=== PATIENT | female | born 1940 | race Hispanic/Latino ===

== ENCOUNTER 2017-07-30 10:12 | Inpatient (IN) | payer MEDICARE ==
[2017-07-30 10:50] LABS: Hematocrit 40.4 % (30.3-42.9); Hemoglobin 13.6 gm/dl (10.1-14.3); Mean Corpuscular HGB Conc 34 % (30-34); Mean Corpuscular Hemoglobin 33 pg (28-32); Mean Corpuscular Volume 97 fl (79-97); Platelet Count 375 K/mm3 (140-440); Red Blood Count 4.16 M/mm3 (3.65-5.03); Red Cell Distribution Width 15.3 % (13.2-15.2)
[2017-07-30 11:05] LABS: BUN/Creatinine Ratio 23; Blood Urea Nitrogen 9 mg/dL (7-17); Calcium 8.8 mg/dL (8.4-10.2); Hemolysis Index 9
--- NOTE | 2017-07-30 11:46 | Cat Scan Report ---
CT HEAD WITHOUT CONTRAST: HISTORY: Syncope. TECHNIQUE: Sequential CT images without contrast. FINDINGS: Images obtained show bilateral prominence of the sulci and ventricles. There are no abnormal intra- or extra-axial blood or fluid collections. There are no focal masses or evidence of mass effect. The davidson white matter differentiation appears within normal limits. Regions of periventricular decreased attenuation are consistent with microangiopathic ischemic disease. The posterior fossa structures including the fourth ventricle, cerebellum, and brainstem appear normal. IMPRESSION: Evidence of atrophy and microangiopathic ischemic disease. No acute intracranial process noted.
--- NOTE | 2017-07-30 11:47 | XRay Report ---
LEFT SHOULDER, 3 VIEWS HISTORY: Left shoulder pain. FINDINGS: Mild osteopenia. A comminuted and mildly displaced left humeral neck fracture is identified. No definite extension to the glenohumeral joint. The left clavicle and scapula are intact. Soft tissue swelling. IMPRESSION: Left humeral neck fracture.
[2017-07-30] MEDS ORDERED: ZOFRAN IV ONE (12:47)
[2017-07-30] MEDS ORDERED: SUBLIMAZE IV ONE (12:47)
[2017-07-30] MEDS ORDERED: NACL 0.9% 1000 ML 1,000 ML IV ONE (13:36)
[2017-07-30] MEDS ORDERED: MORPHINE IM ONE (13:55)
[2017-07-30] MEDS ORDERED: MORPHINE ONE (13:56)
--- NOTE | 2017-07-30 14:08 | Emergency Department Report ---
HPI - General Chief Complaint: Fall Time Seen by Provider: 07/30/17 12:27 - HPI HPI: The patient is a 77-year-old female who presents for evaluation of left arm pain. The patient states that she fell to her left side early this morning approximately 2-3 hours prior to my evaluation, and sustaining injury to her left arm. She complains of constant pain since her fall, 10/10 in severity, throbbing in quality, exacerbated with attempted movement of the left arm at the shoulder joint. She states that she recalls falling but does not recall if she was lightheaded or dizzy prior to falling. She denies headache, neck pain, chest pain, dyspnea, abdominal pain, back pain, cough, hemoptysis, paresthesias , motor deficit and the other arms or legs. ED Past Medical Hx - Past Medical History Hx COPD: Yes - Social History Smoking Status: Current Every Day Smoker Substance Use Type: Alcohol - Medications Home Medications: Home Medications Medication Instructions Recorded Confirmed Last Taken Type Lactose-Reduced Food [Boost] 237 ml PO DAILY 07/30/17 07/30/17 Unknown History Tiotropium [place] [Spiriva] 18 mcg IH PRN 07/30/17 07/30/17 Unknown History ED Review of Systems ROS: Stated complaint: Left shoulder pain/fall Other details as noted in HPI Constitutional: denies: fever ENT: denies: throat or neck pain Respiratory: denies: cough, shortness of breath Cardiovascular: denies: chest pain Endocrine: denies unexplained weight loss or gain Gastrointestinal: denies: abdominal pain, nausea Genitourinary: denies: dysuria Musculoskeletal: reports left arm pain denies: leg swelling Skin: denies: rash Neurological: denies: headache Hematological/Lymphatic: denies: easy bleeding or easy bruising Psych: denies sadness or hopelessness Physical Exam - Physical Exam Vital Signs: Vital Signs 07/30/17 10:30 Temperature 97.6 F Pulse Rate 101 H Respiratory 18 Rate Blood Pressure 144/74 [Right] O2 Sat by Pulse 94 Oximetry Physical Exam: General: well-nourished, well-developed, no acute distress Head: Normocephalic, atraumatic Eyes: normal sclera ENT: Mucous membranes are pale and dry Neck: trachea midline, neck supple, No neck stiffness, no cervical adenopathy Respiratory: Breath sounds equal bilaterally, no wheezing, rales, or rhonchi Cardio: S1 and S2 present, no murmurs, rubs, gallops, capillary refill is delayed Abdomen: Normoactive bowel sounds, soft abdomen, no rigidity, no guarding or rebound tenderness Chest WALL/Back: No tenderness to palpation of the chest wall, no CVA tenderness with percussion Musc: unable to perform range of motion of the left shoulder secondary to pain, Left proximal arm deformity present, tenderness to palpation present distal to the left humeral head, distal sensation, motor function and pulses intact in the left arm, Skin: No rash Neuro: no facial drooping, normal speech Psych: Normal affect ED Course Vital Signs 07/30/17 10:30 Temperature 97.6 F Pulse Rate 101 H Respiratory 18 Rate Blood Pressure 144/74 [Right] O2 Sat by Pulse 94 Oximetry ED Medical Decision Making - Lab Data Result diagrams: 07/30/17 10:32 07/30/17 10:32 - Medical Decision Making The patient was seen and examined by myself. The patient is placed on a front desk monitor and continuous pulse ox. On initial evaluation, the patient was found to be in no distress. Evaluation orders were placed. The patient is given IM morphine for pain. X-ray of the left shoulder exhibits a proximal humeral fracture of the surgical neck, with 100% anterior displacement and was seemingly of shortening, mild angulation. There is no dislocation of the shoulder. The on-call orthopedic surgeon Dr. Amaya was contacted. He agreed to consultation and to arrange for operative reduction and internal fixation of the patient's fracture in the a.m. The on-call hospitalist service was contacted and agreed to admit the patient. The patient is admitted in guarded condition. Critical care attestation.: If time is entered above; I have spent that time in minutes in the direct care of this critically ill patient, excluding procedure time. ED Disposition Clinical Impression: Syncope and collapse, Dehydration Closed fracture of neck of left humerus Qualifiers: Encounter type: initial encounter Qualified Code(s): S42.212A - Unspecified displaced fracture of surgical neck of left humerus, initial encounter for closed fracture Disposition: OP ADMIT IP TO THIS HOSP Is pt being admited?: Yes Does the pt Need Aspirin: Yes Condition: Stable Time of Disposition: 14:01
--- NOTE | 2017-07-30 14:21 | History and Physical Report ---
History of Present Illness Chief complaint: I got dizzy and then passed out History of present illness: 77 YO Female with COPD, Nicotine Dependence, Malnutrition, Chronic Respiratory Failure on intermittent supplemental oxygen at home presents to ED for evaluation. Pt states that she got dizzy shile standing up and fell down this morning and landed on her left side. Pt states that she subsequently felt pain in her Left arm. pain 10/10, localized to the left arm, constant, nonradiating, throbbing in nature, worse with movement, relieved with nonmovement. Pt states that she recalls falling. Patient denies fever, chills, CP, Palpitations, headache, neck pain, dyspnea, abdominal pain, back pain, cough, hemoptysis, paresthesias, motor deficit and the other arms or legs, leg swelling, calf pain , prolonged travel/immobility, individual/family history of DVT/PE, or recent ill contacts. Pt seen and evaluated in ED and found to have a Left humerus fracture. Pt admitted to medical floor, and syncope workup initiated. Past History Past Medical History: COPD, other (Nicotine Dependence, Malnutrition) Past Surgical History: No surgical history, Other (reviewed) Social history: , lives with family, smoking Family history: no significant family history (reviewed) Medications and Allergies Allergies Allergy/AdvReac Type Severity Reaction Status Date / Time Iodinated Contrast- Oral and Allergy Hives Verified 07/30/17 10:23 IV Dye Home Medications Medication Instructions Recorded Confirmed Last Taken Type Lactose-Reduced Food [Boost] 237 ml PO DAILY 07/30/17 07/30/17 Unknown History Tiotropium [place] [Spiriva] 18 mcg IH PRN 07/30/17 07/30/17 Unknown History Active Meds: Active Medications Sodium Chloride (Nacl 0.9% 1000 Ml) 1,000 mls @ 999 mls/hr IV BOLUS ONE Stop: 07/30/17 14:36 Review of Systems Constitutional: weakness, no weight loss, no weight gain, no fever, no chills Ears, nose, mouth and throat: no ear pain, no ear discharge, no tinnitis, no decreased hearing, no nose pain Breasts: no change in shape, no swelling, no mass Cardiovascular: no chest pain, no orthopnea, no palpitations, no rapid/ irregular heart beat, no shortness of breath Respiratory: no cough, no cough with sputum, no excessive sputum, no hemoptysis , no shortness of breath Gastrointestinal: no nausea, no vomiting, no diarrhea, no constipation, no change in bowel habits, no hematemesis Genitourinary Female: no pelvic pain, no flank pain, no menorrhagia, no dysuria , no urinary frequency, no urgency Rectal: no pain, no incontinence, no bleeding Musculoskeletal: no neck stiffness, no neck pain, no shooting arm pain, no arm numbness/tingling Integumentary: no rash, no pruritis, no redness, no sores, no wounds Neurological: syncope, no head injury, no paralysis, no weakness, no parathesias , no numbness, no tingling, no headaches, no migraines Psychiatric: no anxiety, no memory loss, no change in sleep habits, no sleep disturbances, no insomnia, no hypersomnia Endocrine: no cold intolerance, no heat intolerance, no polyphagia, no excessive thirst, no polydipsia, no polyuria Hematologic/Lymphatic: no easy bruising, no easy bleeding, no lymphadenopathy, no lymphedema Allergic/Immunologic: no urticaria, no allergic rhinitis, no wheezing Exam - Constitutional Vitals: Temp Pulse Resp BP Pulse Ox 97.6 F 101 H 18 144/74 94 07/30/17 10:30 07/30/17 10:30 07/30/17 10:30 07/30/17 10:30 07/30/17 10:30 General appearance: Present: mild distress, cachectic - EENT Eyes: Present: PERRL ENT: hearing intact, clear oral mucosa - Neck Neck: Present: supple, normal ROM - Respiratory Respiratory effort: normal Respiratory: bilateral: diminished, rhonchi - Cardiovascular Heart Sounds: Present: S1 & S2. Absent: rub, click - Extremities Extremities: pulses symmetrical, No edema Peripheral Pulses: within normal limits - Abdominal General gastrointestinal: Present: soft, non-tender, non-distended, normal bowel sounds Female genitourinary: Present: normal - Integumentary Integumentary: Present: clear, warm, dry - Musculoskeletal Musculoskeletal: generalized weakness - Psychiatric Psychiatric: appropriate mood/affect, intact judgment & insight - Neurologic Neurologic: CNII-XII intact, moves all extremities Results - Labs CBC & Chem 7: 07/30/17 10:32 07/30/17 10:32 Labs: Abnormal lab results 07/30/17 07/30/17 Range/Units 10:32 10:32 MCH 33 H (28-32) pg RDW 15.3 H (13.2-15.2) % Chloride 96.5 L (98-107) mmol/L Creatinine 0.4 L (0.7-1.2) mg/dL Glucose 122 H (65-100) mg/dL Assessment and Plan - Patient Problems (1) Closed fracture of neck of left humerus Current Visit: Yes Status: Acute Qualifiers: Encounter type: initial encounter Qualified Code(s): S42.212A - Unspecified displaced fracture of surgical neck of left humerus, initial encounter for closed fracture Plan to address problem: Ortho consulted, pain control, Pending surgical intervention in AM. (2) Unconscious state Current Visit: Yes Status: Acute Plan to address problem: CT Head, serial neuro checks, Echo, carotid doppler, EEG, supportive care, thyroid panel. (3) COPD (chronic obstructive pulmonary disease) Current Visit: Yes Status: Acute Qualifiers: COPD type: chronic bronchitis Chronic bronchitis type: mucopurulent Qualified Code(s): J41.1 - Mucopurulent chronic bronchitis Plan to address problem: Supplemental oxygen, nebulizer therapy, smoking cessation counseling, pulmonary toilet. (4) Chronic respiratory failure Current Visit: Yes Status: Acute Qualifiers: Respiratory failure complication: hypoxia and hypercapnia Qualified Code(s) : J96.11 - Chronic respiratory failure with hypoxia; J96.12 - Chronic respiratory failure with hypercapnia; J96.12 - Chronic respiratory failure with hypercapnia; J96.12 - Chronic respiratory failure with hypercapnia Plan to address problem: Supplemental oxygen, nebulizer therapy, NIPPV as clinically indicated. (5) DVT prophylaxis Current Visit: Yes Status: Acute
[2017-07-30] MEDS ORDERED: DULCOLAX PR PRN (14:26)
[2017-07-30] MEDS ORDERED: TYLENOL PO PRN (14:26)
[2017-07-30] MEDS ORDERED: MILK OF MAGNESIA PO PRN (14:26)
[2017-07-30] MEDS ORDERED: ZOFRAN IV PRN (14:26)
[2017-07-30 14:45] LABS: INR 0.88 (0.87-1.13)
[2017-07-30 14:46] LABS: Partial Thromboplastin Time 24.8 Sec. (24.2-36.6)
--- NOTE | 2017-07-30 15:34 | XRay Report ---
AP CHEST: HISTORY: Dyspnea No comparison. There is mild hyperinflation suggesting emphysematous changes. No evidence for pneumonia, pleural effusion or pneumothorax. Heart size and pulmonary vascularity are within normal limits. Left humeral neck fracture is again noted. IMPRESSION: Mild hyperinflation. No acute cardiopulmonary process. These
[2017-07-30] MEDS: SPIRIVA IH SCH (16:58)
[2017-07-30] MEDS: DILAUDID IV PRN (19:05)
[2017-07-30 19:56] LABS: Free T4 (Free Thyroxine) 1.26 ng/dL (0.76-1.46)
[2017-07-31] MEDS: DILAUDID IV PRN ×3 (07:58→20:52)
[2017-07-31] MEDS ORDERED: D5NS 1,000 ML IV SCH (09:00)
--- NOTE | 2017-07-31 09:29 | Progress Note ---
<ROWDY HUBBARD - Last Filed: 07/31/17 16:12> Assessment and Plan Assessment and plan: 77 YO Female with COPD, Nicotine Dependence, Malnutrition, Chronic Respiratory Failure on intermittent supplemental oxygen at home presents to ED for evaluation. Pt states that she got dizzy while standing up and fell down this morning and landed on her left side. Pt states that she subsequently felt pain in her Left arm. pain 10/10, localized to the left arm, constant, nonradiating, throbbing in nature, worse with movement, relieved with nonmovement. Pt states that she recalls falling. Patient denies fever, chills, CP, Palpitations, headache, neck pain, dyspnea, abdominal pain, back pain, cough, hemoptysis, paresthesias, motor deficit and the other arms or legs, leg swelling, calf pain , prolonged travel/immobility, individual/family history of DVT/PE, or recent ill contacts. Pt seen and evaluated in ED and found to have a Left humerus fracture. Closed fracture of neck of left humerus Ortho consulted, pain control, Pending surgical intervention-surgery canceled today needs cardiology clearance Unconscious state likely due to encephalopathy serial neuro checks, Echo, EEG, supportive care, thyroid panel. CT Head shows Evidence of atrophy and microangiopathic ischemic disease. No acute intracranial process noted. carotid doppler shows <50% STENOSIS BILATERALLY BY DOPPLER VELOCITIES.ANTEGRADE VERTEBRAL ARTERY FLOW BILATERALLY. COPD (chronic obstructive pulmonary disease) Supplemental oxygen, nebulizer therapy, smoking cessation counseling, pulmonary toilet. Chronic respiratory failure Supplemental oxygen, nebulizer therapy, NIPPV as clinically indicated. Nicotine dependent Patient counseled on smoking cessation, nicotine patch DVT prophylaxis Lovenox History Interval history: Patient seen and examined with family members at bedside. She denies any new complaints. She also denies nausea vomiting, chest pain shortness of breath. Labs and nursing notes reviewed. Hospitalist Physical - Constitutional Vitals: Temp Pulse Resp BP Pulse Ox 98.0 F 89 18 120/58 96 07/31/17 07:15 07/31/17 07:15 07/31/17 07:15 07/31/17 07:15 07/31/17 07:15 General appearance: Present: mild distress, cachectic - EENT Eyes: Present: PERRL, EOM intact ENT: hearing intact, clear oral mucosa - Neck Neck: Present: supple, normal ROM - Respiratory Respiratory effort: normal Respiratory: bilateral: CTA - Cardiovascular Rhythm: regular Heart Sounds: Present: S1 & S2 - Extremities Extremities: no ischemia, No edema Extremity abnormal: other (left arm in sling) - Abdominal General gastrointestinal: soft, non-tender, non-distended - Integumentary Integumentary: Present: clear, warm, dry - Psychiatric Psychiatric: appropriate mood/affect, intact judgment & insight - Neurologic Neurologic: CNII-XII intact, moves all extremities - Allied Health Allied health notes reviewed: nursing Results - Labs CBC & Chem 7: 07/30/17 10:32 07/30/17 10:32 Labs: Laboratory Last Values WBC 8.1 K/mm3 (4.5-11.0) 07/30/17 10:32 RBC 4.16 M/mm3 (3.65-5.03) 07/30/17 10:32 Hgb 13.6 gm/dl (10.1-14.3) 07/30/17 10:32 Hct 40.4 % (30.3-42.9) 07/30/17 10:32 MCV 97 fl (79-97) 07/30/17 10:32 MCH 33 pg (28-32) H 07/30/17 10:32 MCHC 34 % (30-34) 07/30/17 10:32 RDW 15.3 % (13.2-15.2) H 07/30/17 10:32 Plt Count 375 K/mm3 (140-440) 07/30/17 10:32 PT 12.4 Sec. (12.2-14.9) 07/30/17 14:11 INR 0.88 (0.87-1.13) 07/30/17 14:11 APTT 24.8 Sec. (24.2-36.6) 07/30/17 14:11 Sodium 137 mmol/L (137-145) 07/30/17 10:32 Potassium 4.0 mmol/L (3.6-5.0) 07/30/17 10:32 Chloride 96.5 mmol/L (98-107) L 07/30/17 10:32 Carbon Dioxide 29 mmol/L (22-30) 07/30/17 10:32 Anion Gap 16 mmol/L 07/30/17 10:32 BUN 9 mg/dL (7-17) 07/30/17 10:32 Creatinine 0.4 mg/dL (0.7-1.2) L 07/30/17 10:32 Estimated GFR > 60 ml/min 07/30/17 10:32 BUN/Creatinine Ratio 23 % 07/30/17 10:32 Glucose 122 mg/dL (65-100) H 07/30/17 10:32 POC Glucose 112 (70-105) H 07/30/17 22:33 Calcium 8.8 mg/dL (8.4-10.2) 07/30/17 10:32 TSH 1.670 mlU/mL (0.270-4.200) 07/30/17 18:30 Free T4 1.26 ng/dL (0.76-1.46) 07/30/17 18:30 Blood Type O POSITIVE 07/30/17 14:11 Antibody Screen Negative 07/30/17 14:11 <JOHNATHAN PAYNE - Last Filed: 07/31/17 23:23> Assessment and Plan Assessment and plan: I saw and evaluated the patient. I agree with the findings and the plan of care as documented in the Nurse Practitioner's~note, with the following corrections and additions. Patient felt dizzy fell, possible syncope. Sustained left humeral neck fracture. Consult Cardiology for risk stratifiication. Hospitalist Physical - Constitutional Vitals: Temp Pulse Resp BP Pulse Ox 97.7 F 85 20 94/48 93 07/31/17 15:25 07/31/17 15:25 07/31/17 15:25 07/31/17 15:25 07/31/17 15:25 Results - Labs CBC & Chem 7: 07/30/17 10:32 07/30/17 10:32 Labs: Laboratory Last Values WBC 8.1 K/mm3 (4.5-11.0) 07/30/17 10:32 RBC 4.16 M/mm3 (3.65-5.03) 07/30/17 10:32 Hgb 13.6 gm/dl (10.1-14.3) 07/30/17 10:32 Hct 40.4 % (30.3-42.9) 07/30/17 10:32 MCV 97 fl (79-97) 07/30/17 10:32 MCH 33 pg (28-32) H 07/30/17 10:32 MCHC 34 % (30-34) 07/30/17 10:32 RDW 15.3 % (13.2-15.2) H 07/30/17 10:32 Plt Count 375 K/mm3 (140-440) 07/30/17 10:32 PT 12.4 Sec. (12.2-14.9) 07/30/17 14:11 INR 0.88 (0.87-1.13) 07/30/17 14:11 APTT 24.8 Sec. (24.2-36.6) 07/30/17 14:11 Sodium 137 mmol/L (137-145) 07/30/17 10:32 Potassium 4.0 mmol/L (3.6-5.0) 07/30/17 10:32 Chloride 96.5 mmol/L (98-107) L 07/30/17 10:32 Carbon Dioxide 29 mmol/L (22-30) 07/30/17 10:32 Anion Gap 16 mmol/L 07/30/17 10:32 BUN 9 mg/dL (7-17) 07/30/17 10:32 Creatinine 0.4 mg/dL (0.7-1.2) L 07/30/17 10:32 Estimated GFR > 60 ml/min 07/30/17 10:32 BUN/Creatinine Ratio 23 % 07/30/17 10:32 Glucose 122 mg/dL (65-100) H 07/30/17 10:32 POC Glucose 112 (70-105) H 07/30/17 22:33 Calcium 8.8 mg/dL (8.4-10.2) 07/30/17 10:32 TSH 1.670 mlU/mL (0.270-4.200) 07/30/17 18:30 Free T4 1.26 ng/dL (0.76-1.46) 07/30/17 18:30 Blood Type O POSITIVE 07/30/17 14:11 Antibody Screen Negative 07/30/17 14:11
[2017-07-31] MEDS: SPIRIVA IH SCH (09:38)
[2017-07-31] MEDS ORDERED: LACTOSE REDUCED FOOD PO SCH (10:00)
[2017-07-31] MEDS ORDERED: NACL 0.9% 1000 ML 1,000 ML IV SCH (13:00)
[2017-07-31] MEDS ORDERED: SUBLIMAZE ONE (13:07)
[2017-07-31] MEDS ORDERED: DIPRIVAN 10 MG/ML IV ONE (13:08)
[2017-07-31] MEDS ORDERED: XYLOCAINE MPF 2% ONE (13:10)
[2017-07-31] MEDS ORDERED: PROVENTIL IH ONE (13:28)
[2017-07-31] MEDS ORDERED: ATROVENT IH SCH (13:30)
[2017-07-31] MEDS ORDERED: PROVENTIL IH NR (13:30)
--- NOTE | 2017-07-31 14:22 | Consultation ---
History of Present Illness Consult date: 07/31/17 Requesting physician: ROWDY HUBBARD Consult reason: syncope History of present illness: The pt is a 77 YO female with a past medical history significant for COPD, on home O2 on PRN basis, pneumonia x 2, tobacco use (smokes 3-4 cigarettes daily), ETOH use (drinks 8oz vodka daily). She is previously unknown to our practice. She presented with c/o left shoulder pain following a fall at home. She states that she believes she misplaced her footing and fell down onto her left side and left shoulder. She states that she does not believe she lost consciousness during the fall. She denies any chest pain, SOB above baseline, palpitations, n/ v, diaphoresis, dizziness or syncope. Last year, she tripped and fell over her dog at home and sustained a femur fracture which required surgical intervention. Following arrival, she was found to have left humerus fracture and was scheduled for surgery today. Cardiology has been consulted for pre- operative cardiac clearance. Echo done yesterday showed EF 55-60%, trace MR, mild to mod TR, mod pulm HTN with RVSP 42mmHg, mild [place]. Past History Past Medical History: COPD Past Surgical History: Other (femur fracture s/p femur surgery) Social history: , lives with family, smoking, alcohol abuse (daily ETOH use) Medications and Allergies Allergies Allergy/AdvReac Type Severity Reaction Status Date / Time Iodinated Contrast- Oral and Allergy Hives Verified 07/30/17 10:23 IV Dye Home Medications Medication Instructions Recorded Confirmed Last Taken Type Lactose-Reduced Food [Boost] 237 ml PO DAILY 07/30/17 07/30/17 Unknown History Tiotropium Patrick [Spiriva] 18 mcg IH PRN 07/30/17 07/30/17 Unknown History Active Meds: Active Medications Acetaminophen (Tylenol) 650 mg PO Q4H PRN PRN Reason: Pain MILD(1-3)/Fever >100.5/SKAGGS Albuterol (Proventil) 2.5 mg IH PREOP NR Stop: 07/31/17 21:00 Last Admin: 07/31/17 13:31 Dose: 2.5 mg Bisacodyl (Dulcolax) 10 mg [place] QDAY PRN PRN Reason: Constipation unrelieved by MOM Enoxaparin Sodium (Lovenox) 30 mg SUB-Q QDAY@2200 [facility] Hydromorphone HCl (Dilaudid) 0.5 mg IV Q4H PRN PRN Reason: Pain , Severe (7-10) Last Admin: 07/31/17 07:58 Dose: 0.5 mg Dextrose/Sodium Chloride (D5ns) 1,000 mls @ 60 mls/hr IV DIRECT [facility] Last Admin: 07/31/17 08:32 Dose: 60 mls/hr Sodium Chloride (Nacl 0.9% 1000 Ml) 1,000 mls @ 42 mls/hr IV DIRECT [facility] Stop: 07/31/17 23:59 Last Admin: 07/31/17 13:10 Dose: 42 mls/hr Ipratropium Patrick (Atrovent) 0.5 mg IH PREOP [facility] Stop: 07/31/17 23:59 Magnesium Hydroxide (Milk Of Magnesia) 30 ml PO Q4H PRN PRN Reason: Constipation Ondansetron HCl (Zofran) 4 mg IV Q8H PRN PRN Reason: N/V unrelieved by Reglan Oxycodone/Acetaminophen (Percocet 5/325) 1 tab PO Q6H PRN PRN Reason: Pain, Moderate (4-6) Tiotropium Patrick (Spiriva) 1 puff IH Q24HRT [facility] Last Admin: 07/31/17 09:38 Dose: 1 puff Review of Systems Constitutional: no weight loss, no weight gain, no fever, no chills, no sweats Ears, nose, mouth and throat: no ear pain, no nose pain, no sinus pressure, no sinus pain Cardiovascular: shortness of breath (chronic), dyspnea on exertion (chronic), no chest pain, no orthopnea, no palpitations, no rapid/irregular heart beat, no edema, no syncope, no lightheadedness, no paroxysmal nocturnal dyspnea, no high blood pressure, no leg edema Respiratory: no cough with sputum, no congestion, no wheezing, no pain on inspiration Gastrointestinal: no abdominal pain, no nausea, no vomiting, no diarrhea, no constipation, no change in bowel habits Genitourinary Female: no pelvic pain, no flank pain, no dysuria, no urinary frequency, no urgency Musculoskeletal: fractures (left humerus), other (left shoulder pain ), no neck stiffness, no neck pain, no low back pain, no shooting leg pain, no leg numbness /tingling, no redness of joints Integumentary: no rash, no pruritis, no redness, no sores Neurological: no head injury, no paralysis, no weakness, no parathesias, no numbness, no tingling, no seizures, no syncope Psychiatric: no anxiety Endocrine: no cold intolerance, no heat intolerance Hematologic/Lymphatic: no easy bruising, no easy bleeding, no lymphadenopathy Allergic/Immunologic: no urticaria, no persistent infections Physical Examination Last Vital Signs Temp 97.9 F 07/31/17 11:35 Pulse 87 07/31/17 11:35 Resp 20 07/31/17 11:35 BP 121/59 07/31/17 11:35 Pulse Ox 94 07/31/17 11:35 General appearance: no acute distress HEENT: Positive: PERRL, Normocephaly, Mucus Membranes Moist Neck: Positive: neck supple, trachea midline Cardiac: Positive: Reg Rate and Rhythm, S1/S2 Lungs: Positive: clear to auscultation Neuro: Positive: Grossly Intact, Cranial Nerve 2-12 Intact Abdomen: Positive: Soft. Negative: Tender Skin: Positive: Clear. Negative: Rash, Wound Musculoskeletal: No Fluid Collection Extremities: Absent: edema Results 07/30/17 10:32 07/30/17 10:32 Coagulation 07/30/17 Range/Units 14:11 PT 12.4 (12.2-14.9) Sec. INR 0.88 (0.87-1.13) APTT 24.8 (24.2-36.6) Sec. 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 Currently stable cardiac status. Pt denies syncopal event. Pt is currently at moderate cardiovascular risk for orthopedic surgery. There are no immediate cardiac contraindications to proceeding with surgery at this time. Will consider ischemic evaluation following ortho surgery - can be done as OP. Assessment and plan reviewed with pt and pt's family members at bedside. The patient has been seen in conjunction with Dr. Burdick who agrees with the assessment and plan of care.
[2017-07-31] MEDS ORDERED: NEO SYNEPHRINE/NS Syringe(OR USE) IV ONE (16:53)
[2017-07-31] MEDS ORDERED: LOVENOX SUB-Q SCH (22:00)
[2017-07-31] MEDS: LOVENOX SUB-Q SCH (23:32)
[2017-08-01] MEDS: DILAUDID IV PRN (05:08)
[2017-08-01 05:26] LABS: Hematocrit 33.6 % (30.3-42.9); Hemoglobin 10.9 gm/dl (10.1-14.3); Mean Corpuscular HGB Conc 32 % (30-34); Mean Corpuscular Hemoglobin 32 pg (28-32); Mean Corpuscular Volume 100 fl (79-97); Platelet Count 237 K/mm3 (140-440); Red Blood Count 3.37 M/mm3 (3.65-5.03); Red Cell Distribution Width 15.5 % (13.2-15.2)
[2017-08-01 05:43] LABS: BUN/Creatinine Ratio 27; Blood Urea Nitrogen 8 mg/dL (7-17); Calcium 7.9 mg/dL (8.4-10.2); Hemolysis Index 11
[2017-08-01] MEDS: SPIRIVA IH SCH (09:00)
[2017-08-01] MEDS ORDERED: SUBLIMAZE ONE (10:02)
[2017-08-01] MEDS ORDERED: DIPRIVAN 10 MG/ML IV ONE (10:02)
--- NOTE | 2017-08-01 10:27 | Progress Note ---
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 Pt denies syncopal event. Pt is currently at moderate cardiovascular risk for orthopedic surgery. There are no immediate cardiac contraindications to proceeding with surgery at this time. Will consider ischemic evaluation following ortho surgery - can be done as OP. Assessment and plan reviewed with pt and pt's family members at bedside. The patient has been seen in conjunction with Dr. Burdick who agrees with the assessment and plan of care. Subjective Date of service: 08/01/17 Principal diagnosis: left humerus fx Interval history: pt resting comfortably at bedside, no current complaints. tentatively for ortho surgery today. Objective Last Vital Signs Temp 97.8 F 08/01/17 06:37 Pulse 90 08/01/17 09:05 Resp 18 08/01/17 09:05 BP 102/53 08/01/17 06:37 Pulse Ox 95 08/01/17 09:00 - Physical Examination General: No Apparent Distress HEENT: Positive: PERRL, Normocephaly, Mucus Membranes Moist Neck: Positive: neck supple, trachea midline Cardiac: Positive: Reg Rate and Rhythm, S1/S2 Lungs: Positive: Decreased Breath Sounds Neuro: Positive: Grossly Intact, Cranial Nerve 2-12 Intact Abdomen: Positive: Soft. Negative: Tender Skin: Positive: Clear. Negative: Rash, Wound Musculoskeletal: No Fluid Collection Extremities: Absent: edema - Labs and Meds CBC 08/01/17 Range/Units 05:08 WBC 5.8 (4.5-11.0) K/mm3 RBC 3.37 L (3.65-5.03) M/mm3 Hgb 10.9 (10.1-14.3) gm/dl Hct 33.6 D (30.3-42.9) % Plt Count 237 (140-440) K/mm3 Comprehensive Metabolic Panel 08/01/17 Range/Units 05:08 Sodium 138 (137-145) mmol/L Potassium 4.2 (3.6-5.0) mmol/L Chloride 101.7 (98-107) mmol/L Carbon Dioxide 28 (22-30) mmol/L BUN 8 (7-17) mg/dL Creatinine 0.3 L (0.7-1.2) mg/dL Glucose 110 H (65-100) mg/dL Calcium 7.9 L (8.4-10.2) mg/dL - Imaging and Cardiology EKG: report reviewed, image reviewed Echo: report reviewed (EF 55-60%, trace MR, mild to mod TR, mod pulm HTN with RVSP 42mmHg, mild [place]) - EKG Sinus rhythms and dysrhythmias: sinus rhythm Myocardial infarction: septal [place] (old age or ind, anterior [place] (old age or i
[2017-08-01] MEDS ORDERED: ROBINUL ONE (10:30)
[2017-08-01] MEDS ORDERED: NACL 0.9% 1000 ML 1,000 ML IV SCH (11:05)
[2017-08-01] MEDS ORDERED: MORPHINE ONE (11:08)
[2017-08-01] MEDS ORDERED: MARCAINE 0.5% 30 ML INFILTRATI ONE (11:08)
[2017-08-01] MEDS ORDERED: TORADOL ONE (11:08)
[2017-08-01] MEDS ORDERED: NACL 0.9% 0 ML ONE ×2 (11:09)
--- NOTE | 2017-08-01 11:13 | Anesthesia Consultation ---
Anesthesia Consult and Med Hx Date of service: 08/01/17 - Airway Anesthetic Teeth Evaluation: Good ROM Head & Neck: Adequate Mental/Hyoid Distance: Adequate Mallampati Class: Class I Intubation Access Assessment: Good - Pulmonary Exam CTA: Yes - Cardiac Exam Cardiac Exam: RRR - Pre-Operative Health Status ASA Pre-Surgery Classification: ASA3 Proposed Anesthetic Plan: General - Pulmonary Hx Smoking: Yes (current) COPD: Yes - Cardiovascular System Hx Hypertension: No - Central Nervous System Hx Back Pain: No Hx Psychiatric Problems: No - Gastrointestinal Hx Gastroesophageal Reflux Disease: No - Endocrine Hx Renal Disease: No - Other Systems Hx Alcohol Use: Yes (last drink Friday night - vodka) Hx Substance Use: No Hx Cancer: No
--- NOTE | 2017-08-01 11:17 | Progress Note ---
<ROWDY HUBBARD - Last Filed: 08/01/17 11:08> Assessment and Plan Assessment and plan: 77 YO Female with COPD, Nicotine Dependence, Malnutrition, Chronic Respiratory Failure on intermittent supplemental oxygen at home presents to ED for evaluation. Pt states that she got dizzy while standing up and fell down this morning and landed on her left side. Pt states that she subsequently felt pain in her Left arm. pain 10/10, localized to the left arm, constant, nonradiating, throbbing in nature, worse with movement, relieved with nonmovement. Pt states that she recalls falling. Patient denies fever, chills, CP, Palpitations, headache, neck pain, dyspnea, abdominal pain, back pain, cough, hemoptysis, paresthesias, motor deficit and the other arms or legs, leg swelling, calf pain , prolonged travel/immobility, individual/family history of DVT/PE, or recent ill contacts. Pt seen and evaluated in ED and found to have a Left humerus fracture. Closed fracture of neck of left humerus Ortho consulted, pain control, Pending surgical intervention today cleared from cardiology for surgery Unconscious state likely due to encephalopathy serial neuro checks, supportive care, thyroid panel WNL CT Head shows Evidence of atrophy and microangiopathic ischemic disease. No acute intracranial process noted. carotid doppler shows <50% STENOSIS BILATERALLY BY DOPPLER VELOCITIES.ANTEGRADE VERTEBRAL ARTERY FLOW BILATERALLY. Echo done yesterday showed EF 55-60%, trace MR, mild to mod TR, mod pulm HTN with RVSP 42mmHg, mild [place] COPD (chronic obstructive pulmonary disease) Supplemental oxygen, nebulizer therapy, smoking cessation counseling, pulmonary toilet. Chronic respiratory failure Supplemental oxygen, nebulizer therapy, NIPPV as clinically indicated. Nicotine dependent Patient counseled on smoking cessation, nicotine patch DVT prophylaxis Lovenox History Interval history: Patient seen and examined with family members at bedside. She denies any new complaints. She also denies nausea vomiting, chest pain shortness of breath. Labs and nursing notes reviewed. Hospitalist Physical - Constitutional Vitals: Temp Pulse Resp BP Pulse Ox 97.8 F 90 18 102/53 95 08/01/17 06:37 08/01/17 09:05 08/01/17 09:05 08/01/17 06:37 08/01/17 09:00 General appearance: Present: no acute distress, cachectic - EENT Eyes: Present: PERRL, EOM intact ENT: hearing intact, clear oral mucosa, poor dentition - Neck Neck: Present: supple, normal ROM - Respiratory Respiratory effort: normal Respiratory: bilateral: CTA - Cardiovascular Rhythm: regular Heart Sounds: Present: S1 & S2 - Extremities Extremities: no ischemia, No edema Extremity abnormal: other (R hand in cast) - Abdominal General gastrointestinal: soft, non-tender, non-distended - Integumentary Integumentary: Present: clear, warm, dry - Psychiatric Psychiatric: appropriate mood/affect, cooperative - Neurologic Neurologic: CNII-XII intact, moves all extremities - Allied Health Allied health notes reviewed: nursing Results - Labs CBC & Chem 7: 08/01/17 05:08 08/01/17 05:08 Labs: Laboratory Last Values WBC 5.8 K/mm3 (4.5-11.0) 08/01/17 05:08 RBC 3.37 M/mm3 (3.65-5.03) L 08/01/17 05:08 Hgb 10.9 gm/dl (10.1-14.3) 08/01/17 05:08 Hct 33.6 % (30.3-42.9) D 08/01/17 05:08 MCV 100 fl (79-97) H 08/01/17 05:08 MCH 32 pg (28-32) 08/01/17 05:08 MCHC 32 % (30-34) 08/01/17 05:08 RDW 15.5 % (13.2-15.2) H 08/01/17 05:08 Plt Count 237 K/mm3 (140-440) 08/01/17 05:08 PT 12.4 Sec. (12.2-14.9) 07/30/17 14:11 INR 0.88 (0.87-1.13) 07/30/17 14:11 APTT 24.8 Sec. (24.2-36.6) 07/30/17 14:11 Sodium 138 mmol/L (137-145) 08/01/17 05:08 Potassium 4.2 mmol/L (3.6-5.0) 08/01/17 05:08 Chloride 101.7 mmol/L (98-107) 08/01/17 05:08 Carbon Dioxide 28 mmol/L (22-30) 08/01/17 05:08 Anion Gap 13 mmol/L 08/01/17 05:08 BUN 8 mg/dL (7-17) 08/01/17 05:08 Creatinine 0.3 mg/dL (0.7-1.2) L 08/01/17 05:08 Estimated GFR > 60 ml/min 08/01/17 05:08 BUN/Creatinine Ratio 27 % 08/01/17 05:08 Glucose 110 mg/dL (65-100) H 08/01/17 05:08 POC Glucose 112 (70-105) H 07/30/17 22:33 Calcium 7.9 mg/dL (8.4-10.2) L 08/01/17 05:08 TSH 1.670 mlU/mL (0.270-4.200) 07/30/17 18:30 Free T4 1.26 ng/dL (0.76-1.46) 07/30/17 18:30 Blood Type O POSITIVE 07/30/17 14:11 Antibody Screen Negative 07/30/17 14:11 <JOHNATHAN PAYNE - Last Filed: 08/02/17 00:41> Assessment and Plan Assessment and plan: I saw and evaluated the patient. I agree with the findings and the plan of care as documented in the Nurse Practitioner's~note, with the following corrections and additions. Patient fell, had humerus fracture. For surgery today. Hospitalist Physical - Constitutional Vitals: Temp Pulse Resp BP Pulse Ox 97.4 F L 90 18 105/49 99 08/01/17 20:19 08/01/17 20:19 08/01/17 20:19 08/01/17 20:19 08/01/17 20:54 Results - Labs CBC & Chem 7: 08/01/17 05:08 08/01/17 05:08 Labs: Laboratory Last Values WBC 5.8 K/mm3 (4.5-11.0) 08/01/17 05:08 RBC 3.37 M/mm3 (3.65-5.03) L 08/01/17 05:08 Hgb 10.9 gm/dl (10.1-14.3) 08/01/17 05:08 Hct 33.6 % (30.3-42.9) D 08/01/17 05:08 MCV 100 fl (79-97) H 08/01/17 05:08 MCH 32 pg (28-32) 08/01/17 05:08 MCHC 32 % (30-34) 08/01/17 05:08 RDW 15.5 % (13.2-15.2) H 08/01/17 05:08 Plt Count 237 K/mm3 (140-440) 08/01/17 05:08 PT 12.4 Sec. (12.2-14.9) 07/30/17 14:11 INR 0.88 (0.87-1.13) 07/30/17 14:11 APTT 24.8 Sec. (24.2-36.6) 07/30/17 14:11 Sodium 138 mmol/L (137-145) 08/01/17 05:08 Potassium 4.2 mmol/L (3.6-5.0) 08/01/17 05:08 Chloride 101.7 mmol/L (98-107) 08/01/17 05:08 Carbon Dioxide 28 mmol/L (22-30) 08/01/17 05:08 Anion Gap 13 mmol/L 08/01/17 05:08 BUN 8 mg/dL (7-17) 08/01/17 05:08 Creatinine 0.3 mg/dL (0.7-1.2) L 08/01/17 05:08 Estimated GFR > 60 ml/min 08/01/17 05:08 BUN/Creatinine Ratio 27 % 08/01/17 05:08 Glucose 110 mg/dL (65-100) H 08/01/17 05:08 POC Glucose 112 (70-105) H 07/30/17 22:33 Calcium 7.9 mg/dL (8.4-10.2) L 08/01/17 05:08 TSH 1.670 mlU/mL (0.270-4.200) 07/30/17 18:30 Free T4 1.26 ng/dL (0.76-1.46) 07/30/17 18:30 Blood Type O POSITIVE 07/30/17 14:11 Antibody Screen Negative 07/30/17 14:11
--- NOTE | 2017-08-01 11:18 | Anesthesia Day of Surgery ---
Anesthesia Day of Surgery - Day of Surgery Patient Examined: Yes Patient H&P Reviewed: Yes Patient is NPO: Yes Beta Blockers: Yes Cardiac Clearance: Yes Pulmonary Clearance: Yes
[2017-08-01] MEDS ORDERED: ANCEF/STERILE WATER 2 GM/20 ML IV NR (13:00)
[2017-08-01] MEDS ORDERED: XYLOCAINE MPF 2% ONE (13:14)
[2017-08-01] MEDS ORDERED: NEO SYNEPHRINE/NS Syringe(OR USE) IV ONE (13:15)
[2017-08-01] MEDS ORDERED: NACL 0.9% IR ONE (13:21)
[2017-08-01] MEDS ORDERED: MARCAINE 0.5% INFILTRATI ONE ×2 (13:21)
[2017-08-01] MEDS ORDERED: ZOFRAN ONE (13:36)
[2017-08-01] MEDS ORDERED: DECADRON ONE (13:37)
--- NOTE | 2017-08-01 14:03 | XRay Report ---
LEFT HUMERUS, ONE VIEW History: Fracture of neck of left humerus and Findings: 2 AP fluoroscopic images of the left humerus were obtained during surgery. The images demonstrate internal fixation of the left humeral neck fracture. Alignment is anatomic. Normal articulation of the left shoulder. Impression: Open reduction and internal fixation of the left humeral neck fracture.
--- NOTE | 2017-08-01 14:04 | XRay Report ---
LEFT SHOULDER, ONE VIEW History: Left humeral neck fracture. Findings: A single AP fluoroscopic scalp image of the left shoulder was obtained prior to surgery. The comminuted left humeral neck fracture is unchanged in position or alignment since 07/30/17. Impression: Left humeral neck fracture.
--- NOTE | 2017-08-01 14:06 | Procedure Note ---
Date of procedure: 08/01/17 Pre-op diagnosis: displaced left 2 part proximal humerus fracture Post-op diagnosis: same Procedure: Closed reduction and insertion of intramedullary nail left proximal humerus Procedure The patient was brought to the OR placed in the OR table in supine position following induction and intubation anesthesia the patient's left upper extremity was prepped and draped in the usual sterile manner. A timeout procedure was done to identify the patient and the correct operative site And incision was made just anterior to the acromion this is taken down sharply through skin and subcutaneous the deltoid muscle was split longitudinally followed by incision of the rotator cuff tendon under C-arm visualization a threaded guidewire was inserted down the medullary canal. AP and lateral fluoroscopy pain to ensure we were then well within the medullary canal proximally and distally, the canal was then reamed to a 8.5 mm diameter this was followed by insertion of a short proximal humeral nail measuring 1507 mm, again under C-arm visualization the monster was advanced down the medullary canal this is followed by locking proximally and distally using a spiral blade proximally and a 3.5 mm distal locking screw position of the fracture fragments as well as the intramedullary monster were evaluated and found to be in good position next the wound was copiously irrigated and was closed in a standard routine fashion postop dressings were applied patient tolerated the procedure there were no complications she was sent to postanesthesia recovery in a stable condition Anesthesia: NANNETTE Surgeon: JACLYN VALDOVINOS Estimated blood loss: 50-100ml Condition: stable Disposition: PACU
--- NOTE | 2017-08-01 14:16 | Post Anesthesia Evaluation ---
- Post Anesthesia Evaluation Patient Participated: Yes Airway Patent: Yes Stable Respiratory Function: Yes Nausea/Vomiting: No Temp > 96.8F: Yes Pain Manageable: Yes Adequeate Hydration: Yes Anesthesia Complications: No Block Receding Appropriately: Not Applicable Patient on Ventilator: No
[2017-08-01] MEDS: SUBLIMAZE IV PRN ×2 (14:29→15:20)
[2017-08-01] MEDS ORDERED: SODIUM CHLORIDE FLUSH SYRINGE 10 ML IV NR (15:00)
[2017-08-01] MEDS: PERCOCET 5/325 PO PRN (16:45)
[2017-08-01] MEDS: LOVENOX SUB-Q SCH (23:27)
[2017-08-02] MEDS: PERCOCET 5/325 PO PRN (02:04)
[2017-08-02] MEDS: SPIRIVA IH SCH ×2 (07:12→09:34)
[2017-08-02 08:45] VITALS: BP 112/55
--- NOTE | 2017-08-02 10:12 | Progress Note ---
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 f/u w us in office Subjective Date of service: 08/02/17 Principal diagnosis: left humerus fx Interval history: feels well Objective Vital Signs Temp Pulse Pulse Resp Resp BP BP 08/02/17 07:34 98.3 F 96 H 20 112/55 08/02/17 07:12 95 H 18 08/02/17 05:30 98.1 F 100 H 18 157/88 08/01/17 20:54 08/01/17 20:19 97.4 F L 90 18 105/49 08/01/17 18:52 97.9 F 91 H 16 102/48 08/01/17 17:55 98.4 F 92 H 16 113/50 08/01/17 17:09 98.6 F 102 H 16 105/46 08/01/17 16:33 97.5 F L 90 18 113/56 08/01/17 16:08 97.5 F L 87 18 110/55 08/01/17 15:40 97 F L 83 12 118/51 08/01/17 15:20 14 08/01/17 15:00 83 14 112/58 08/01/17 14:59 12 08/01/17 14:45 85 12 119/57 08/01/17 14:30 81 12 109/48 08/01/17 14:29 14 08/01/17 14:15 90 12 128/60 08/01/17 14:10 89 12 120/56 08/01/17 14:05 91 H 12 128/60 08/01/17 14:00 97.7 F 83 12 127/54 08/01/17 10:55 99.1 F 83 18 107/56 Pulse Ox 08/02/17 07:34 97 08/02/17 07:12 95 08/02/17 05:30 83 L 08/01/17 20:54 99 08/01/17 20:19 97 08/01/17 18:52 96 08/01/17 17:55 96 08/01/17 17:09 94 02/02/18 16:33 91 08/01/17 16:08 93 08/01/17 15:40 97 08/01/17 15:20 08/01/17 15:00 97 08/01/17 14:59 08/01/17 14:45 97 08/01/17 14:30 97 08/01/17 14:29 08/01/17 14:15 97 08/01/17 14:10 96 08/01/17 14:05 96 08/01/17 14:00 100 08/01/17 10:55 98 - Physical Examination General: No Apparent Distress HEENT: Positive: PERRL, Normocephaly, Mucus Membranes Moist Neck: Positive: neck supple, trachea midline Neuro: Positive: Grossly Intact, Cranial Nerve 2-12 Intact Abdomen: Positive: Soft. Negative: Tender Skin: Positive: Clear. Negative: Rash, Wound Musculoskeletal: No Fluid Collection Extremities: Absent: edema - Imaging and Cardiology EKG: report reviewed, image reviewed Echo: report reviewed (EF 55-60%, trace MR, mild to mod TR, mod pulm HTN with RVSP 42mmHg, mild [place]) - EKG Sinus rhythms and dysrhythmias: sinus rhythm Myocardial infarction: septal [place] (old age or ind, anterior [place] (old age or i
[2017-08-02] MEDS: DILAUDID IV PRN (10:57)
--- NOTE | 2017-08-02 11:57 | Discharge Summary ---
Providers - Providers Date of Admission: 07/30/17 14:26 Date of discharge: 08/02/17 Attending physician: JOHNATHAN PAYNE 07/31/17 06:15 Consult to Physician [CONS] Stat Consulting Provider: JACLYN AMAYA Reason For Exam: Comminuted, Displaced Humeral Fracture Place consult to:: Dr. Amaya Notified:: Dr. Amaya Phone number called:: [phone] Was contact made?: Yes If yes, spoke with:: Dr. Amaya Comment:: Notification made by ED physician 07/31/17 13:38 Consult to Physician [CONS] Routine Consulting Provider: JOSE DANIEL FOUNTAIN Reason For Exam: syncope/dizziness Place consult to:: argenis espinoza Notified:: yes Phone number called:: paged overhead Was contact made?: Yes If yes, spoke with:: argenis Time called:: 13:54 Comment:: cristy Primary care physician: JOHNATHAN CLIFTON Hospitalization Condition: Fair Disposition: DC-30 STILL A PATIENT Core Measure Documentation - Palliative Care Palliative Care/ Comfort Measures: Not Applicable - Core Measures Any of the following diagnoses?: none Exam - Constitutional Vitals: Temp Pulse Resp BP Pulse Ox 98.3 F 96 H 20 112/55 97 08/02/17 07:34 08/02/17 07:34 08/02/17 07:34 08/02/17 07:34 08/02/17 07:34 Plan Activity: advance as tolerated Diet: regular Additional Instructions: 1.Follow up with PCP in 1 week. 2.Follow up with Dr. Amaya in 1 week. Follow up with: JOHNATHAN CLIFTON MD [Primary Care Provider] - 3-5 Days Prescriptions: HYDROcodone/APAP 7.5-325 [[place] 7.5-325 mg TAB] 1 each PO Q6HR PRN #30 tablet PRN Reason: Pain
== END 2017-08-02 14:30 | disposition home or self-care (01) | DRG 492 ==
LOC: EDSEX → ED 10:12 → 2B-ACE 14:26
PROVIDERS: ADMIT Internal Medicine; ATTEND Internal Medicine
PROC: 0PSD06Z Reposition Left Humeral Head with Intramedullary Internal Fixation Device, Open Approach (ICD-10-PCS; principal; 2017-08-01)
DX: S42.212A Unspecified displaced fracture of surgical neck of left humerus, initial encounter for closed fracture (principal); G93.40 Encephalopathy, unspecified; J96.10 Chronic respiratory failure, unspecified whether with hypoxia or hypercapnia; E46 Unspecified protein-calorie malnutrition; Z68.1 Body mass index [BMI] 19.9 or less, adult; F17.200 Nicotine dependence, unspecified, uncomplicated; I27.20 Pulmonary hypertension, unspecified; W18.39XA Other fall on same level, initial encounter; E86.0 Dehydration; J44.9 Chronic obstructive pulmonary disease, unspecified; Y92.89 Other specified places as the place of occurrence of the external cause; Y99.8 Other external cause status; Y93.89 Activity, other specified; Z71.6 Tobacco abuse counseling
CPT/HCPCS: 36415; 70450; 71045; 80048; 82962; 84439; 84443; 85027; 85610; 85730; 86850; 86900; 86901; 93005; 93010; 93306; 93880; 94760; 95819; 96372; C1713; J0690; J1100; J1170; J1650; J1885; J2270; J2370; J2405; J2704; J3010; J7030; J7042